=== PATIENT | female | born 1940 | race Caucasian/White ===

== ENCOUNTER 2016-11-29 02:18 | Emergency (ER) | payer OTHER ==
--- NOTE | 2016-11-29 05:43 | DIAGNOSTIC IMAGING REPORT ---
PROCEDURE: XR CHEST 2 VIEW INDICATION: CHEST PAIN TECHNIQUE: PA and lateral view. COMPARISON: Chest x-ray 04/21/2010. FINDINGS: Lungs are clear. Cardiovascular structures are normal. Bony thorax is unremarkable. No significant interval change. IMPRESSION: 1. Negative chest.
--- NOTE | 2016-11-29 05:59 | DIAGNOSTIC IMAGING REPORT ---
PROCEDURE: CT ABD/PELVIS WITH CONTRAST CLINICAL INDICATION: ABDOMINAL PAIN TECHNIQUE: 125 ml of Isovue 300 were injected intravenously and axial images were obtained of the entire abdomen and pelvis with sagittal and coronal reformations. COMPARISON: None. FINDINGS: ABDOMEN: Right middle lobe and lingular scarring. Normal heart size. Liver, gallbladder, pancreas, spleen (splenule) adrenal glands and left kidney are normal. Small right renal cyst. Mild atherosclerosis of the aorta. Stool throughout the large bowel. PELVIS: Normal appendix. 3.7 x 2.5 cm left adnexal mass with thick enhancing rim and central decreased attenuation. Normal bladder. No inflammatory changes or free fluid. Moderate degenerative changes of the spine. IMPRESSION: 1. 3.7 x 2.5 cm left adnexal mass versus fibroid. Recommend pelvic ultrasound 2. Obstipation 3. Preliminary results submitted by Dr. Lopez, [facility]. All CT scans at this facility use dose modulation, iterative reconstruction, and/or weight-based dosing when appropriate to reduce radiation dose to as low as reasonably achievable.
--- NOTE | 2016-11-29 05:59 | DIAGNOSTIC IMAGING REPORT ---
PROCEDURE: CT ABD/PELVIS WITH CONTRAST CLINICAL INDICATION: ABDOMINAL PAIN TECHNIQUE: 125 ml of Isovue 300 were injected intravenously and axial images were obtained of the entire abdomen and pelvis with sagittal and coronal reformations. COMPARISON: None. FINDINGS: ABDOMEN: Right middle lobe and lingular scarring. Normal heart size. Liver, gallbladder, pancreas, spleen (splenule) adrenal glands and left kidney are normal. Small right renal cyst. Mild atherosclerosis of the aorta. Stool throughout the large bowel. PELVIS: Normal appendix. 3.7 x 2.5 cm left adnexal mass with thick enhancing rim and central decreased attenuation. Normal bladder. No inflammatory changes or free fluid. Moderate degenerative changes of the spine. IMPRESSION: 1. 3.7 x 2.5 cm left adnexal mass versus fibroid. Recommend pelvic ultrasound 2. Obstipation 3. Preliminary results submitted by Dr. Lopez, [facility] radiology. All CT scans at this facility use dose modulation, iterative reconstruction, and/or weight-based dosing when appropriate to reduce radiation dose to as low as reasonably achievable.
--- NOTE | 2016-11-29 07:27 | ED ORDER SUMMARY ---
..... Patient: SARAY SHETH [facility] VisitID: [id number] [place] [address] 76y, F Registration Date/Time: 11/29/2016 ORDER SHEET Weight: 61.2 kg (stated) Allergies: Allergic to some medications, cannot remember. GENERAL ORDERS: Cardiac Panel Stat (03:21 11/29/2016 Mary Ann PAULINO) (Ack 3:27 Ishan) (3:34 JSanders R.N.) Lipase Urgent (03:11/29/2016 Mary Ann PAULINO) (Ack 3:27 Ishan) (3:34 Lindas R.N.) Amylase Urgent (03:11/29/2016 Mary Ann PAULINO) (Ack 3:27 Ishan) (3:34 Lindas R.N.) CRP Urgent (03:11/29/2016 Mary Ann PAULINO) (Ack 3:27 Ishan) (3:34 MILESanders R.N.) Geographic Area Intelligence Officer (Continuous) (03:21 11/29/2016 Mary Ann PAULINO) (Ack 3:27 Ishan) Chest 2V Urgent (03:11/29/2016 Mary Ann PAULINO) (Ack 3:27 Ishan) (4:14 RFay) CT Abd/Pel w Cont (No) (pending) Urgent (03:22 11/29/2016 Mary Ann PAULINO) (Ack 3:27 Ishan) (4:14 RFay) Pulse oximeter (03:22 11/29/2016 Mary Ann PAULINO) (Ack 3:27 Ishan) EKG - ER Stat (03:11/29/2016 Mary Ann PAULINO) (Ack 3:27 Ishan) (3:50 CHategekimana) US Abdomen Complete (No) Urgent (04:48 11/29/2016 Ishan verbal order read back to Mary Ann PAULINO) (Ack 4:52 Ishan) (Cancelled: Wrong Order5:38 Ishan) Room 9 US Pelvic Complete w Transvag Urgent (05:40 11/29/2016 Ishan written order Mary Ann PAULINO) (Ack 5:57 Ishan) (7:13 Kierra R.NJennifer) MEDICATION ORDERS: IV FLUIDS: IV Saline Lock (03:22 11/29/2016 Mary Ann PAULINO) (3:34 Samira R.N.) Demerol IV 12.5 mg (NOW) (06:02 11/29/2016 Melony Shen.N. verbal order read back to Mary Ann PAULINO) (6:10 Melony R.NJennifer) ORDER SHEET NOTES: [Electronically signed by Thierry Matta R.N. (08:38 11/29/2016)] [Electronically signed by Sanket Gay MD (23:00 12/11/2016)] [Electronically locked/signed by Thierry Matta R.N. (08:38 11/29/2016)]
--- NOTE | 2016-11-29 07:27 | ED NURSING NOTES ---
Clinical Report - Nurses [facility] [address] [place] [address] 11/29/2016 2:21 [id number] Triage time 02:28. Acuity: LEVEL 3. Chief Complaint: ABDOMINAL PAIN. --02:36 Sheriff Rodriguez R.N. 02:27 11/29/16. BP: 156/65. HR: 75. RR: 18. O2 saturation: 100%. Temp: 97.6 F. Pain level now: 12/05. --02:36 Sheriff Rodriguez R.N. Weight: 61.2 kg stated. Height/Length: 66 inches Per Patient. BMI: 21.8. --02:28 Sheriff Rodriguez R.N. Medications Percocet Oral. --02:32 Sheriff Rodriguez R.N. Allergies Allergic to some medications, cannot remember.. --02:33 Sheriff Rodriguez R.N. History Arrived by private vehicle. Historian: patient. Unaccompanied. ( Seen at walk in [facility] in [facility] for same symptoms. Xray done at the clinic, gas and constipation. Constipation has since been resolved but pain still persists.). SURGERY HX: Salpingectomy. SOCIAL HX: Never smoker. Alcohol use; consumes wine daily. No drug use. FALL RISK ASSESSMENT: Fall risk assessment completed. No fall risk identified. NUTRITIONAL RISK ASSESSMENT: The nutritional risk assessment revealed no deficiencies. FUNCTIONAL ASSESSMENT: Functional assessment: no impairments noted. LEARNING NEEDS ASSESSMENT: The learning needs assessment revealed no barriers. SKIN INTEGRITY ASSESSMENT: Skin integrity risk assessment completed. No skin integrity risk identified. --02:36 Sheriff Rodriguez R.N. PROBLEMS: Muscle Spasm. --02:35 Sheriff Rodriguez R.N. PHYSICAL ASSESSMENT Ambulatory to room. Patient gowned. GENERAL / NEURO / PSYCH: Alert. Oriented X 4. Appears in no acute distress. HEENT: Mucous membranes are pink. RESPIRATORY: Respirations not labored. CVS: Capillary refill less than 2 seconds. SKIN: Skin is warm and dry. --02:36 Sheriff Rodriguez R.N. NURSING PROGRESS NOTES Head of bed elevated. Two patient identifiers checked. Call light placed in reach. Side rails up x 2. Bed placed in lowest position. Brakes of bed on. --02:37 Sheriff Rodriguez R.N. 02:30 11/29/2016 Site #1 started via IV in the left antecubital space with an 20g angiocath, with aseptic technique and good blood return; one attempt. Blood drawn: rainbow set. Labeled in the presence of the patient and sent to the lab. --03:34 Hansa Wiggins R.N. EKG time: (03:37 AM). EKG was performed by a tech and shown to the ED physician. --04:25 Noemy Galeas 06:10 11/29/2016 Demerol (Meperidine HCl) IVP 12.5 mg given over 1 minute(s) via site #1. Allergies verified and confirmed 5 rights. IV patency established. IV site checked: no pain, redness, or swelling. IV flushed thoroughly pre- and post-medication administration. IVP given by RN. --06:10 Sheriff Rodriguez R.N. DISPOSITION / DISCHARGE 07:43 11/29/16. Departure time: 732. Condition at departure: improved and stable. No learning barriers present. Discharge instructions provided and reviewed with the patient. Reviewed medication(s) side effects, precautions, dosing and course information. Prescription(s) given to the patient. Patient verbalized understanding. Written instructions provided in Portuguese. The patient was discharged by the physician. She was discharged home. She left the Emergency Department ambulatory and via private vehicle. Patient driving. --07:43 Thierry Matta R.N. 07:32 11/29/16. BP: 141/58. HR: 78. RR: 16. O2 saturation: 96% on room air. Temp: 98.1 F (oral). --07:43 Thierry Matta R.N. Locked/Released at 11/29/2016 8:38 by Thierry Matta R.N.
--- NOTE | 2016-11-29 07:27 | ED NURSING NOTES ---
Clinical Report - Nurses [facility] [address] [place] [address] 11/29/2016 2:21 [id number] Triage time 02:28. Acuity: LEVEL 3. Chief Complaint: ABDOMINAL PAIN. --02:36 Sheriff Rodriguez R.N. 02:27 11/29/16. BP: 156/65. HR: 75. RR: 18. O2 saturation: 100%. Temp: 97.6 F. Pain level now: 12/05. --02:36 Sheriff Rodriguez R.N. Weight: 61.2 kg stated. Height/Length: 66 inches Per Patient. BMI: 21.8. --02:28 Sheriff Rodriguez R.N. Medications Percocet Oral. --02:32 Sheriff Rodriguez R.N. Allergies Allergic to some medications, cannot remember.. --02:33 Sheriff Rodriguez R.N. History Arrived by private vehicle. Historian: patient. Unaccompanied. ( Seen at walk in [facility] in [facility] for same symptoms. Xray done at the clinic, gas and constipation. Constipation has since been resolved but pain still persists.). SURGERY HX: Salpingectomy. SOCIAL HX: Never smoker. Alcohol use; consumes wine daily. No drug use. FALL RISK ASSESSMENT: Fall risk assessment completed. No fall risk identified. NUTRITIONAL RISK ASSESSMENT: The nutritional risk assessment revealed no deficiencies. FUNCTIONAL ASSESSMENT: Functional assessment: no impairments noted. LEARNING NEEDS ASSESSMENT: The learning needs assessment revealed no barriers. SKIN INTEGRITY ASSESSMENT: Skin integrity risk assessment completed. No skin integrity risk identified. --02:36 Sheriff Rodriguez R.N. PROBLEMS: Muscle Spasm. --02:35 Sheriff Rodriguez R.N. PHYSICAL ASSESSMENT Ambulatory to room. Patient gowned. GENERAL / NEURO / PSYCH: Alert. Oriented X 4. Appears in no acute distress. HEENT: Mucous membranes are pink. RESPIRATORY: Respirations not labored. CVS: Capillary refill less than 2 seconds. SKIN: Skin is warm and dry. --02:36 Sheriff Rodriguez R.N. NURSING PROGRESS NOTES Head of bed elevated. Two patient identifiers checked. Call light placed in reach. Side rails up x 2. Bed placed in lowest position. Brakes of bed on. --02:37 Sheriff Rodriguez R.N. 02:30 11/29/2016 Site #1 started via IV in the left antecubital space with an 20g angiocath, with aseptic technique and good blood return; one attempt. Blood drawn: rainbow set. Labeled in the presence of the patient and sent to the lab. --03:34 Hansa Wiggins R.N. EKG time: (03:37 AM). EKG was performed by a tech and shown to the ED physician. --04:25 Noemy Galeas 06:10 11/29/2016 Demerol (Meperidine HCl) IVP 12.5 mg given over 1 minute(s) via site #1. Allergies verified and confirmed 5 rights. IV patency established. IV site checked: no pain, redness, or swelling. IV flushed thoroughly pre- and post-medication administration. IVP given by RN. --06:10 Sheriff Rodriguez R.N. DISPOSITION / DISCHARGE 07:43 11/29/16. Departure time: 732. Condition at departure: improved and stable. No learning barriers present. Discharge instructions provided and reviewed with the patient. Reviewed medication(s) side effects, precautions, dosing and course information. Prescription(s) given to the patient. Patient verbalized understanding. Written instructions provided in Chinese. The patient was discharged by the physician. She was discharged home. She left the Emergency Department ambulatory and via private vehicle. Patient driving. --07:43 Thierry Matta R.N. 07:32 11/29/16. BP: 141/58. HR: 78. RR: 16. O2 saturation: 96% on room air. Temp: 98.1 F (oral). --07:43 Thierry Matta R.N. Locked/Released at 11/29/2016 8:38 by Thierry Matta R.N.
--- NOTE | 2016-11-29 07:27 | ED ORDER SUMMARY ---
..... Patient: SARAY SHETH OrderSheet [facility] VisitID: [id number] [place] [address] 76y, F Registration Date/Time: 11/29/2016 ORDER SHEET Weight: 61.2 kg (stated) Allergies: Allergic to some medications, cannot remember. GENERAL ORDERS: Cardiac Panel Stat (03:21 11/29/2016 Mary Ann PAULINO) (Ack 3:27 Ishan) (3:34 JSanders R.N.) Lipase Urgent (03:11/29/2016 Mary Ann PAULINO) (Ack 3:27 Ishan) (3:34 Lindas R.N.) Amylase Urgent (03:11/29/2016 Mary Ann PAULINO) (Ack 3:27 Ishan) (3:34 Lindas R.N.) CRP Urgent (03:11/29/2016 Mary Ann PAULINO) (Ack 3:27 Ishan) (3:34 MILESanders R.N.) Tile Roofer (Continuous) (03:21 11/29/2016 Mary Ann PAULINO) (Ack 3:27 Ishan) Chest 2V Urgent (03:11/29/2016 Mary Ann PAULINO) (Ack 3:27 Ishan) (4:14 RFay) CT Abd/Pel w Cont (No) (pending) Urgent (03:22 11/29/2016 Mary Ann PAULINO) (Ack 3:27 Ishan) (4:14 RFay) Pulse oximeter (03:22 11/29/2016 Mary Ann PAULINO) (Ack 3:27 Ishan) EKG - ER Stat (03:11/29/2016 Mary Ann PAULINO) (Ack 3:27 Ishan) (3:50 CHategekimana) US Abdomen Complete (No) Urgent (04:48 11/29/2016 Ishan verbal order read back to Mary Ann PAULINO) (Ack 4:52 Ishan) (Cancelled: Wrong Order5:38 Ishan) Room 9 US Pelvic Complete w Transvag Urgent (05:40 11/29/2016 Ishan written order Mary Ann PAULINO) (Ack 5:57 Ishan) (7:13 Kierra R.NJennifer) MEDICATION ORDERS: IV FLUIDS: IV Saline Lock (03:22 11/29/2016 Mary Ann PAULINO) (3:34 Samira R.N.) Demerol IV 12.5 mg (NOW) (06:02 11/29/2016 Melony Shen.N. verbal order read back to Mary Ann PAULINO) (6:10 Melony R.NJennifer) ORDER SHEET NOTES: [Electronically signed by Thierry Matta R.N. (08:38 11/29/2016)] [Electronically signed by Sanket Gay MD (23:00 12/11/2016)] [Electronically locked/signed by Thierry Matta R.N. (08:38 11/29/2016)]
--- NOTE | 2016-11-29 07:27 | ED CLINICAL REPORT ---
Clinical Report - Physicians/Mid Levels [facility] [address] [place] [address] 11/29/2016 2:21 [id number] Time Seen: 03:01 Nov 29 2016. Arrived- By private vehicle. Historian- patient. CPT: ER phys charges level 4 (#[id number]). HISTORY OF PRESENT ILLNESS Chief Complaint: ABDOMINAL PAIN. (( Seen at walk in [facility] in [facility] for same symptoms. Xray done at the clinic, gas and constipation. Constipation has since been resolved but pain still persists.).). It is described as cramping and it is described as located in the periumbilical area. At its maximum, severity described as moderate. When seen in the E.D., severity described as mild. Modifying factors. Not worsened by anything. Not relieved by anything. The patient has had nausea and loss of appetite. No vomiting or diarrhea. No recent travel. Similar symptoms previously: None. Recent medical care: The patient was seen recently at another facility in a clinic. REVIEW OF SYSTEMS The patient has had constipation. No black stools, hematemesis, difficulty with urination, pain with urination or urinary frequency. No bloody stools, fever, sore throat, chest pain or difficulty breathing. No cough, joint pain, skin rash or chills. All systems otherwise negative, except as recorded above. PAST HISTORY Salpingectomy. Muscle Spasm. No history of peptic ulcer. No history of gallstones or bowel obstruction. Has not had urinary calculi. Surgeries: No prior abdominal surgery. Medications: Percocet Oral. Allergies: Allergic to some medications, cannot remember.. SOCIAL HISTORY Never smoker. Occasional alcohol use. No drug use. ADDITIONAL NOTES The nursing notes have been reviewed. PHYSICAL EXAM Vital Signs: 11/29/2016 02:27 BP: 156/65. HR: 75. RR: 18. O2 saturation: 100%. Temp: 97.6 F. Pain level now: 7/10. Appearance: Alert. Anxious. Patient in mild distress. Eyes: Eyes normal inspection. ENT: Pharynx normal. Neck: Normal inspection. CVS: Normal heart rate and rhythm. Heart sounds normal. Pulses normal. Respiratory: No respiratory distress. Breath sounds normal. Chest nontender. Abdomen: Soft. Mild tenderness in the periumbilical area. Bowel sounds normal. No mass. Back: Normal inspection. No CVA tenderness. Skin: Skin warm. Normal skin color. No rash. Extremities: Extremities exhibit normal ROM. No lower extremity edema. Neuro: Oriented X 3. No motor deficit. No sensory deficit. LABS, X-RAYS, AND EKG EKG: Normal sinus rhythm. Normal P waves. Q waves in lead V1 and V2. Normal axis. Normal ST and T waves. Prior EKG unavailable. The study has been interpreted contemporaneously. The study has been independently viewed by me. The EKG appears to be a good tracing. Abdominal CT: No mass. Abundant stool. Left adnexal mass. Need US . Abdominal CT performed with IV contrast. The study was independently viewed by me, interpreted by the radiologist and discussed with the radiologist. Pelvic Sonogram: left adnexal mass 3.6 cm that is solid. Study type: abdominal and transvaginal evaluation. The study was independently viewed by me and interpreted contemporaneously by me. Laboratory Tests: CBC w Diff: (FILIPE: 11/29/2016 02:35) ( MsgRcvd 11/29/2016 03:30) Final results Test Result Flag Units (Reference) WHITE BLOOD COUNT 5.3 K/uL (4.5-11.5) RED BLOOD COUNT 3.64 L M/uL (4.00-5.20) HEMOGLOBIN 12.1 gm/dL (12.0-16.0) HEMATOCRIT 35.9 L % (36.0-46.0) MEAN CELL VOLUME 99 fL (80-100) MEAN CORPUSCULAR HGB 33 pg (26-34) MEAN CORPUSCULAR HGB CONC 34 g/dL (31-37) RED CELL DISTRIBUTION WIDTH 12.9 % (11.6-14.8) PLATELET COUNT 348 K/uL (150-400) NEUTROPHIL % 47.5 L % (50-75) LYMPH % 41.1 H % (25-40) MONO % 8.7 % (3-14) EOSINOPHIL % 2.1 % (0-4) BASOPHIL % 0.6 % (0-2) Lipase: (FILIPE: 11/29/2016 02:35) ( MsgRcvd 11/29/2016 03:37) Final results Test Result Flag Units (Reference) LIPASE 83 U/L (73-393) AMYLASE 54 U/L (25-115) C-REACTIVE PROTEIN 0.3 mg/dL (0.0-0.9) CHEM 13 PANEL: (FILIPE: 11/29/2016 02:35) ( MsgRcvd 11/29/2016 03:42) Final results Test Result Flag Units (Reference) GLUCOSE 111 H mg/dL (70-110) BUN 4 L mg/dL (7-18) CREATININE 0.6 mg/dL (0.6-1.3) Estimated GFR >60 mL/min Estimated GFR- >60 mL/min Note: Persistent reduction over 3 months in eGFR<60 mL/min/1.73 m2 defines CKD. Patients with eGFR values>=60 mL/min/1.73 m2 may also have CKD if evidence ofpersistent proteinuria. Additional information may be foundat www.kidney.org. SODIUM 133 L mmol/L (136-145) POTASSIUM 3.5 mmol/L (3.5-5.1) CHLORIDE 95 L mmol/L (98-107) CARBON DIOXIDE 27 mmol/L (21-32) CALCIUM 8.8 mg/dL (8.5-10.1) TOTAL PROTEIN 7.4 g/dL (6.4-8.2) ALBUMIN 3.9 g/dL (3.3-5.0) BILIRUBIN, TOTAL 0.3 mg/dL (0.0-1.0) ALKALINE PHOSPHATASE 74 U/L (46-116) AST (SGOT) 30 U/L (15-37) ALT (SGPT) 22 U/L (12-78) CPK 75 U/L (24-260) MAGNESIUM 2.0 mg/dL (1.8-2.4) TROPONIN I <0.05 L ng/mL (0.00-1.5) TROPONIN REFERENCE RANGE:<0.1 NEGATIVE0.1-1.5 INDETERMINANT>1.5 POSITIVE . PROGRESS AND PROCEDURES Course of Care: Heplock Demerol 12.5 mg IV Patient is stable. Symptoms better. Discussed need for prompt follow up to evaluate the pelvic mass. Pt feels her constipation resolved at home. Discussed CT results and that the obstipation is still present. Patient/family counseled. Disposition: Discharged. Condition: stable and improved. CLINICAL IMPRESSION Acute generalized, right upper quadrant and left upper quadrant abdominal pain of unknown cause. Left ovarian mass Obstipation. INSTRUCTIONS Drink plenty of fluids. Warnings: Further evaluation is necessary. Your Current Medications: CONTINUE TAKING THE FOLLOWING MEDICATIONS: Percocet Oral. Prescription Medications: Oxycodone/APAP 5 mg/325 mg: take 1-2 tablets orally every 6 hours as needed for pain. Dispense ten (10). No refill. GoLytely 4 oz every 15 minutes until gone. # 1 jug. Follow-up: Follow up with your doctor in two days even if well. Call for an appointment. Understanding of the discharge instructions verbalized by patient. (Electronically signed by Sanket Gay MD 12/11/2016 23:00)
--- NOTE | 2016-11-30 09:26 | DIAGNOSTIC IMAGING REPORT ---
PROCEDURE: US COMPLETE PELVIC W/TRANSVAG INDICATION: Pain. Follow-up left pelvic mass. TECHNIQUE: Transabdominal and endovaginal brooks scale and color Doppler sonographic images of the female pelvis were obtained. COMPARISON: Compared CT abdomen and pelvis earlier today, 11/29/2016. FINDINGS: TRANSABDOMINAL SCANS: Uterus is of normal size (5.9 x 2.7 cm). TRANSVAGINAL SCANS: There are dystrophic calcifications of the myometrium. Endometrial thickness is normal (2 mm) with minimal fluid in the endometrial canal. There is a 3.8 x 3.5 cm ovoid solid mass in the left adnexal region which most likely represents a pedunculated fibroid. Left ovary is not clearly visualized and is presumed atrophic. Right ovary is not visualized and is presumed atrophic. No evidence of free fluid. IMPRESSION: 1. There is a 3.8 x 3.5 cm solid mass in left adnexal region which most likely represents a pedunculated fibroid. A solid left ovarian mass is less likely. Follow-up pelvic ultrasound in 4-6 weeks is recommended to confirm stability. 2. Findings discussed with Dr. Sanket Gay.
--- NOTE | 2016-12-11 23:01 | ED MAR SUMMARY ---
..... Medication Administration Record [facility] [address] [place] [address] Patient: SARAY SHETH Visit ID: [id number] 76y, F Weight: 61.2 kg Height/Length: 66 in BMI: 21.8 ALLERGIES: Allergic to some medications, cannot remember. Given 06:10 11/29/2016 Sheriff Rodriguez R.N. Medication Administered: DEMEROL [IVP] (MEPERIDINE HCL), Dose: 12.5 mg IVP over 1 minute(s), Site: #1 left AC. Medication Ordered: Demerol IV 12.5 mg (NOW).
--- NOTE | 2016-12-11 23:01 | ED MED RECONCILIATION SUMMARY ---
Patient: SARAY SHETH Medication Reconciliation Report [facility] VisitID: [id number] [address] [place] [address] 76y, F Registration Date/Time: 11/29/2016 Weight: 61.2 kg Height/Length: 66 in. BMI: 21.8 ALLERGIES: Allergic to some medications, cannot remember. The patient's Home Medications are listed below: CONTINUE TAKING THE FOLLOWING MEDICATIONS: Percocet Oral The source(s) of the original Home Medication information: Not obtained. The following Medications were given to the patient in the Emergency Department: Demerol [IVP] IVP 12.5 mg, administered: 11/29/2016 6:10:00 AM The following Medications were prescribed to the patient: GoLytely 4 oz every 15 minutes until gone. # 1 jug. -- Sanket Gay MD Oxycodone/APAP 5 mg/325 mg: take 1-2 tablets orally every 6 hours as needed for pain. Dispense ten (10). No refill. -- Sanket Gay MD
--- NOTE | 2016-12-11 23:01 | ED MAR SUMMARY ---
..... Medication Administration Record [facility] [address] [place] [address] Patient: SARAY SHETH Visit ID: [id number] 76y, F Weight: 61.2 kg Height/Length: 66 in BMI: 21.8 ALLERGIES: Allergic to some medications, cannot remember. Given 06:10 11/29/2016 Sheriff Rodriguez R.N. Medication Administered: DEMEROL [IVP] (MEPERIDINE HCL), Dose: 12.5 mg IVP over 1 minute(s), Site: #1 left AC. Medication Ordered: Demerol IV 12.5 mg (NOW).
--- NOTE | 2016-12-11 23:01 | ED DISCHARGE INSTRUCTIONS ---
Patient: SARAY SHETH General Instructions [facility] VisitID: [id number] [place] [address] 76y, F Registration Date/Time: 11/29/2016 Acute generalized, right upper quadrant and left upper quadrant abdominal pain of unknown cause. Left ovarian mass Obstipation. INSTRUCTIONS Drink plenty of fluids. Warnings: Further evaluation is necessary. Your Current Medications: CONTINUE TAKING THE FOLLOWING MEDICATIONS: Percocet Oral. Prescription Medications: Oxycodone/APAP 5 mg/325 mg: take 1-2 tablets orally every 6 hours as needed for pain. Dispense ten (10). No refill. GoLytely 4 oz every 15 minutes until gone. # 1 jug. Follow-up: Follow up with your doctor in two days even if well. Call for an appointment. Understanding of the discharge instructions verbalized by patient. ADDITIONAL INFORMATION Abdominal Pain, Unknown Cause (Female) The exact cause of your abdominal (stomach) pain is not certain. This does not mean that this is something to worry about, or the right tests were not done. Everyone likes to know the exact cause of the problem, but sometimes with abdominal pain, there is no clear-cut cause, and this could be a good thing. The good news is that your symptoms can be treated, and you will feel better. Your condition does not seem serious now; however, sometimes the signs of a serious problem may take more time to appear. For this reason,it is important for you to watch for any new symptoms, problems,or worsening of your condition. Over the next few days, the abdominal pain may come and go, or be continuous. Other common symptoms can include nausea and vomiting. Sometimes it can be difficult to tell if you feel nauseous, you may just feel bad and not associate that feeling with nausea. Constipation, diarrhea, and a fever may go along with the pain. The pain may continue even if treated correctly over the following days. Depending on how things go, sometimes the cause can become clear and may require further or different treatment. Additional evaluations, medications, or tests may be needed. Home care Your health care provider may prescribe medications for pain, symptoms, or an infection. Follow the health care provider's instructions for taking these medications. General care Rest until your next exam. No strenuous activities. Try to find positions that ease discomfort. A small pillow placed on the abdomen may help relieve pain. Something warm on your abdomen (such as a heating pad) may help, but be careful not to burn yourself. Diet Do not force yourself to eat, especially if having cramps, vomiting, or diarrhea. Water is important so you do not get dehydrated. Soup may also be good. Sports drinks may also help, especially if they are not too acidic. Make sure you don't drink sugary drinks as this can make things worse. Take liquids in small amounts. Do not guzzle them. Caffeine sometimes makes the pain and cramping worse. Avoid dairy products if you have vomiting or diarrhea. Don't eat large amounts at a time. Wait a few minutes between bites. Eat a diet low in fiber (called a low-residue diet). Foods allowed include refined breads, white rice, fruit and vegetable juices without pulp, tender meats. These foods will pass more easily through the intestine. Avoid whole-grain foods, whole fruits and vegetables, meats, seeds and nuts, fried or fatty foods, dairy, alcohol and spicy foods until your symptoms go away. Follow-up care Follow up with your health care provider as instructed, or if your pain does not begin to improve in the next 24 hours. When to seek medical care Seek prompt medical care if any of the following occur: Pain gets worse or moves to the right lower abdomen New or worsening vomiting or diarrhea Swelling of the abdomen Unable to pass stool for more than three days Fever of 100.4F (38C) or higher, or as directed by your healthcare provider. Blood in vomit or bowel movements (dark red or black color) Jaundice (yellow color of eyes and skin) Weakness, dizziness Chest, arm, back, neck or jaw pain Unexpected vaginal bleeding or missed period Call 911 Call emergency services if any of the following occur: Trouble breathing Confusion Fainting or loss of consciousness Rapid heart rate Seizure Oxycodone Hydrochloride, Acetaminophen Oral tablet What is this medicine? ACETAMINOPHEN; OXYCODONE (a set a EDWIN rebecca fen; ox i KOE done) is a pain reliever. It is used to treat mild to moderate pain. How should I use this medicine? Take this medicine by mouth with a full glass of water. Follow the directions on the prescription label. Take your medicine at regular intervals. Do not take your medicine more often than directed. Talk to your order expediter regarding the use of this medicine in children. Special care may be needed. Patients over 65 years old may have a stronger reaction and need a smaller dose. What side effects may I notice from receiving this medicine? Side effects that you should report to your doctor or health complex care nurse practitioner as soon as possible: allergic reactions like skin rash, itching or hives, swelling of the face, lips, or tongue breathing difficulties, wheezing confusion light headedness or fainting spells severe stomach pain yellowing of the skin or the whites of the eyes Side effects that usually do not require medical attention (report to your doctor or health complex care nurse practitioner if they continue or are bothersome): dizziness drowsiness nausea vomiting What may interact with this medicine? alcohol antihistamines barbiturates like amobarbital, butalbital, butabarbital, methohexital, pentobarbital, phenobarbital, thiopental, and secobarbital benztropine drugs for bladder problems like solifenacin, trospium, oxybutynin, tolterodine, hyoscyamine, and methscopolamine drugs for breathing problems like ipratropium and tiotropium drugs for certain stomach or intestine problems like propantheline, homatropine methylbromide, glycopyrrolate, atropine, belladonna, and dicyclomine general anesthetics like etomidate, ketamine, nitrous oxide, propofol, desflurane, enflurane, halothane, isoflurane, and sevoflurane medicines for depression, anxiety, or psychotic disturbances medicines for sleep muscle relaxants naltrexone narcotic medicines (opiates) for pain phenothiazines like perphenazine, thioridazine, chlorpromazine, mesoridazine, fluphenazine, prochlorperazine, promazine, and trifluoperazine scopolamine tramadol trihexyphenidyl What if I miss a dose? If you miss a dose, take it as soon as you can. If it is almost time for your next dose, take only that dose. Do not take double or extra doses. Where should I keep my medicine? Keep out of the reach of children. This medicine can be abused. Keep your medicine in a safe place to protect it from theft. Do not share this medicine with anyone. Selling or giving away this medicine is dangerous and against the law. Store at room temperature between 20 and 25 degrees C (68 and 77 degrees F). Keep container tightly closed. Protect from light. This medicine may cause accidental overdose and if it is taken by other adults, children, or pets. Flush any unused medicine down the toilet to reduce the chance of harm. Do not use the medicine after the expiration date. What should I tell my health care provider before I take this medicine? They need to know if you have any of these conditions: brain tumor Crohn's disease, inflammatory bowel disease, or ulcerative colitis drink more than 3 alcohol containing drinks per day drug abuse or addiction head injury heart or circulation problems kidney disease or problems going to the bathroom liver disease lung disease, asthma, or breathing problems an unusual or allergic reaction to acetaminophen, oxycodone, other opioid analgesics, other medicines, foods, dyes, or preservatives or trying to get breast-feeding What should I watch for while using this medicine? Tell your doctor or health complex care nurse practitioner if your pain does not go away, if it gets worse, or if you have new or a different type of pain. You may develop tolerance to the medicine. Tolerance means that you will need a higher dose of the medication for pain relief. Tolerance is normal and is expected if you take this medicine for a long time. Do not suddenly stop taking your medicine because you may develop a severe reaction. Your body becomes used to the medicine. This does NOT mean you are addicted. Addiction is a behavior related to getting and using a drug for a non-medical reason. If you have pain, you have a medical reason to take pain medicine. Your doctor will tell you how much medicine to take. If your doctor wants you to stop the medicine, the dose will be slowly lowered over time to avoid any side effects. You may get drowsy or dizzy. Do not drive, use machinery, or do anything that needs mental alertness until you know how this medicine affects you. Do not stand or sit up quickly, especially if you are an older patient. This reduces the risk of dizzy or fainting spells. Alcohol may interfere with the effect of this medicine. Avoid alcoholic drinks. There are different types of narcotic medicines (opiates) for pain. If you take more than one type at the same time, you may have more side effects. Give your health care provider a list of all medicines you use. Your doctor will tell you how much medicine to take. Do not take more medicine than directed. Call emergency for help if you have problems breathing. The medicine will cause constipation. Try to have a bowel movement at least every 2 to 3 days. If you do not have a bowel movement for 3 days, call your doctor or health complex care nurse practitioner. Do not take Tylenol (acetaminophen) or medicines that have acetaminophen with this medicine. Too much acetaminophen can be very dangerous. Many nonprescription medicines contain acetaminophen. Always read the labels carefully to avoid taking more acetaminophen. You have been given the following additional information: Abdominal Pain, Unknown Cause, (Female) Oxycodone Hydrochloride, Acetaminophen Oral tablet (Electronically signed by Sanket Gay MD 12/11/2016 23:00)
--- NOTE | 2016-12-11 23:01 | ED MED RECONCILIATION SUMMARY ---
Patient: SARAY SHETH Medication Reconciliation Report [facility] VisitID: [id number] [place] [address] 76y, F Registration Date/Time: 11/29/2016 Weight: 61.2 kg Height/Length: 66 in. BMI: 21.8 ALLERGIES: Allergic to some medications, cannot remember. The patient's Home Medications are listed below: CONTINUE TAKING THE FOLLOWING MEDICATIONS: Percocet Oral The source(s) of the original Home Medication information: Not obtained. The following Medications were given to the patient in the Emergency Department: Demerol [IVP] IVP 12.5 mg, administered: 11/29/2016 6:10:00 AM The following Medications were prescribed to the patient: GoLytely 4 oz every 15 minutes until gone. # 1 jug. -- Sanket Gay MD Oxycodone/APAP 5 mg/325 mg: take 1-2 tablets orally every 6 hours as needed for pain. Dispense ten (10). No refill. -- Sanket Gay MD
== END 2016-11-29 07:33 | disposition home or self-care (01) ==
LOC: ED SRH 02:18
DX: R10.12 Left upper quadrant pain (principal); R10.11 Right upper quadrant pain; K59.00 Constipation, unspecified; N83.9 Noninflammatory disorder of ovary, fallopian tube and broad ligament, unspecified
CPT/HCPCS: 90074; 90100; 90616; 91585; 92235; 92530; 92610; 92720; 95059